=== PATIENT | female | born 1950 | race African-American/Black ===

== ENCOUNTER 2019-12-03 05:22 | Emergency (ER) | payer MEDICARE, OTHER ==
[2019-12-03] MEDS ORDERED: methylPREDNISolone Acetate 40 mg/ml Vial ONE (06:11)
--- NOTE | 2019-12-03 13:00 | RAD ---
CHEST TWO VIEWS: HISTORY: Cough. FINDINGS: The lungs appear clear. No infiltrate. Heart and mediastinum unremarkable, Osseous structures unrem arkable with degenerative spine change. IMPRESSION: No acute finding. POS: [facility]
[2019-12-04 14:01] LABS: SARS-CoV-2 MS2 Positive; SARS-CoV-2 N Gene Negative; SARS-CoV-2 S Gene Negative; SARS-CoV-2 orf1ab Negative
== END 2019-12-03 07:10 | disposition home or self-care (01) ==
LOC: NAV ERS 05:22
DX: J45.901 Unspecified asthma with (acute) exacerbation (principal); I10 Essential (primary) hypertension; Z79.899 Other long term (current) drug therapy
CPT/HCPCS: 71046; 94640; U0003; 87635; 96372; J2960; J7620